=== PATIENT | female | born 1995 | race Caucasian/White ===

== ENCOUNTER 2020-09-19 11:49 | Inpatient (IN) | payer OTHER ==
[2020-09-19] MEDS ORDERED: Water For Irrigation,Sterile 1,000 ML Container IRR PRN (12:38)
[2020-09-19] MEDS ORDERED: Misoprostol 200 MCG Tab PO PRN (12:38)
[2020-09-19] MEDS ORDERED: Sodium Chloride 0.9% 2.5 ML Syringe FLUSH PRN (12:38)
[2020-09-19] MEDS ORDERED: Terbutaline 1 MG/ML SDV SUBCUT PRN (12:38)
[2020-09-19] MEDS ORDERED: Nalbuphine 10 MG/1 ML Vial IVPUSH PRN (12:38)
[2020-09-19] MEDS ORDERED: Tranexamic Acid 1,000 MG in Sodium Chloride 0.9% 100 ML IV PRN (12:38)
[2020-09-19] MEDS ORDERED: Misoprostol 25 MCG (1/4 of 100 MCG) Tab VAG PRN ×2 (12:38)
[2020-09-19] MEDS ORDERED: Lidocaine 1% 50 ML MDV INJECT PRN (12:38)
[2020-09-19] MEDS ORDERED: Sodium Chloride 0.9% 10 ML Syringe FLUSH PRN (12:38)
[2020-09-19] MEDS ORDERED: Methylergonovine 0.2 MG/1 ML Amp IM PRN (12:38)
[2020-09-19] MEDS ORDERED: Butorphanol 1 MG/ML SDV IVPUSH PRN (12:38)
[2020-09-19] MEDS ORDERED: Sodium Chloride 0.9% 10 ML SDV IV PRN (12:38)
[2020-09-19] MEDS ORDERED: Carboprost Tromethamine 250 MCG/1 ML Amp IM PRN (12:38)
[2020-09-19] MEDS ORDERED: Oxytocin/0.9 % Sodium Chloride 30 UNIT/500 ML BAG IV SCH ×2 (12:45)
[2020-09-19] MEDS: Lactated Ringers 1,000 ML IV SCH ×4 (13:50→22:49)
[2020-09-19] MEDS ORDERED: Ropivacaine HCl/PF 100 ML ONE (23:25)
[2020-09-19] MEDS ORDERED: fentaNYL 100 MCG/2 ML SDV ONE (23:26)
--- NOTE | 2020-09-19 23:45 | PCM.PREANE ---
Preanesthetic Assessment - Anesthesia/Transfusion/Family Hx Anesthesia History: Prior Anesthesia Without Reaction Family History of Anesthesia Reaction: No Transfusion History: No Prior Transfusion(s) Intubation History: Unknown - Review of Systems General: No Symptoms Pulmonary: No Symptoms Cardiovascular: No Symptoms Gastrointestinal: Abdominal Pain (labor pain) Neurological: No Symptoms Other: Reports: None - Physical Assessment Height: 5 ft 9 in Weight: 99.337 kg ASA Class: 2 Mental Status: Alert & Oriented x3 Airway Class: Mallampati = 2 Dentition: Reports: Normal Dentition Thyro-Mental Finger Breadths: 3 Mouth Opening Finger Breadths: 3 ROM/Head Extension: Full Lungs: Clear to Auscultation, Normal Respiratory Effort Cardiovascular: Regular Rate, Regular Rhythm - Lab Values: Laboratory Last Values Ur Random Creatinine 154.2 mg/dL 09/19/20 11:00 U Random Total Protein 25.4 mg/dL (<11.9) H 09/19/20 11:00 Protein/Creatinin Ratio 0.2 09/19/20 11:00 SARS-CoV-2 RNA (KENDAL) NEGATIVE (NEGATIVE) 09/19/20 12:25 Blood Type A POSITIVE 09/19/20 13:50 Antibody Screen NEGATIVE 09/19/20 13:50 - Allergies Allergies/Adverse Reactions: Allergies Allergy/AdvReac Type Severity Reaction Status Date / Time No Known Drug Allergies Allergy Other Verified 09/19/20 12:57 - Blood Blood Available: No - Anesthesia Plan Pre-Op Medication Ordered: None - Acknowledgements Anesthesia Type Planned: Epidural Pt an Appropriate Candidate for the Planned Anesthesia: Yes Alternatives and Risks of Anesthesia Discussed w Pt/Guardian: Yes Pt/Guardian Understands and Agrees with Anesthesia Plan: Yes PreAnesthesia Questionnaire - Past Health History Medical/Surgical History: Denies Medical/Surgical History Cardiovascular History: Reports: Other (See Below) (gestational HTN) RECORDS CUSTODIAN History: Reports: Psychiatric History: Reports: Anxiety, Depression - SUBSTANCE USE Tobacco Use Status *Q: Former Tobacco User Tobacco Use Within Last Twelve Months: Cigarettes Second Hand Smoke Exposure: No Recreational Drug Use History: No - CURRENT (IN HOUSE) MEDS Current Meds: Current Medications Butorphanol Tartrate (Stadol) 1 mg IVPUSH Q1H PRN PRN Reason: Pain Last Admin: 09/19/20 19:55 Dose: 1 mg Documented by: Carboprost Tromethamine (Hemabate Ds) 250 mcg IM ASDIRECTED PRN PRN Reason: Post Hemorrhage Oxytocin/Sodium Chloride (Oxytocin 30 Unit/500 Ml-Ns) 30 unit in 500 mls @ 2 mls/hr IV TITRATE MANJU; Protocol Lactated Ringer's (Ringers, Lactated) 1,000 mls @ 150 mls/hr IV ASDIRECTED MANJU Last Admin: 09/19/20 22:49 Dose: 150 mls/hr Documented by: Oxytocin/Sodium Chloride (Oxytocin 30 Unit/500 Ml-Ns) 30 unit in 500 mls @ 999 mls/hr IV TITRATE MANJU Tranexamic Acid 1,000 mg/ (Sodium Chloride) 110 mls @ 660 mls/hr IV ONETIME PRN PRN Reason: Bleeding Lidocaine HCl (Xylocaine 1%) 50 ml INJECT ONETIME PRN PRN Reason: Laceration repair Methylergonovine Maleate (Methergine) 0.2 mg IM ASDIRECTED PRN PRN Reason: Post Hemorrhage Misoprostol (Cytotec) 25 mcg VAG ONETIME PRN PRN Reason: Cervical Ripening Last Admin: 09/19/20 14:23 Dose: 25 mcg Documented by: Misoprostol (Cytotec) 25 mcg VAG Q4H PRN PRN Reason: Cervical Ripening Last Admin: 09/19/20 19:02 Dose: 25 mcg Documented by: Misoprostol (Cytotec) 200 mcg PO ONETIME PRN PRN Reason: Post Hemorrhage Nalbuphine HCl (Nubain) 10 mg IVPUSH Q1H PRN PRN Reason: Pain (severe 7-10) Sodium Chloride (Saline Flush) 10 ml FLUSH ASDIRECTED PRN PRN Reason: Keep Vein Open Sodium Chloride (Saline Flush) 2.5 ml FLUSH ASDIRECTED PRN PRN Reason: Keep Vein Open Sodium Chloride (Normal Saline) 10 ml IV ASDIRECTED PRN PRN Reason: IV Use Sterile Water (Sterile Water For Irrigation) 1,000 ml IRR ASDIRECTED PRN PRN Reason: delivery Terbutaline Sulfate (Brethine) 0.25 mg SUBCUT ASDIRECTED PRN PRN Reason: Tacysystole Discontinued Medications Fentanyl (Sublimaze) Confirm Administered Dose 100 mcg .ROUTE .[facility] ONE Stop: 09/19/20 23:27 Ropivacaine (Naropin 0.2%) Confirm Administered Dose 100 mls @ as directed .ROUTE .[facility] ONE Stop: 09/19/20 23:26
[2020-09-20] MEDS ORDERED: Ondansetron 4 MG/2 ML SDV IVPUSH ONE (00:47)
[2020-09-20] MEDS ORDERED: Water For Irrigation,Sterile 1,000 ML Container IRR SCH (02:00)
[2020-09-20] MEDS ORDERED: oxyCODONE 5 MG Tab PO PRN (02:15)
[2020-09-20] MEDS ORDERED: Bisacodyl 10 MG Supp RECTAL PRN (02:15)
[2020-09-20] MEDS ORDERED: Docusate Sodium 100 MG Cap PO PRN (02:15)
[2020-09-20] MEDS ORDERED: Ibuprofen 400 MG Tab PO PRN (02:15)
[2020-09-20] MEDS ORDERED: Lanolin 100% Cream 7 GM Tube TOP PRN (02:15)
[2020-09-20] MEDS ORDERED: Acetaminophen 500 MG Tab PO PRN (02:15)
--- NOTE | 2020-09-20 02:24 | PCM.DEL ---
L & D Note - General Info Date of Service: 09/20/20 Mother's Due Date: 09/26/20 - Delivery Note Labor: Induced by ARM Cervical Ripening Method: Misoprostil Delivery Outcome: Livebirth Delivery Method: Spontaneous Vaginal Delivery-Single Presentation: Left Occiput Anterior (AZALIA) Nuchal Cord: Present (x1) Anesthesia Type: Epidural Amniotic Fluid Description: Clear Suture type: Vicryl (2-0), Chromic (3-0) Placenta: Intact, Spontaneous Cord: 3 Vessels Estimated Blood Loss: 200 Resuscitation Needed: No [place]: Suctioned, Bulb Syringe, Stimulated, [place] Used Score 1 min: 7 Score 5 min: 8 Delivery Comments (Free Text/Narrative):: Dictation #[id number] Induction Criteria - Lambert Score Lambert Score Dilation: 1-2 cm Lambert Score Effacement: 40-50% Lambert Score 's Station: -3 Lambert Score Presenting Part: Reports: Cephalic - Induction Gestational Age >/= 39 wks: Yes Estimated Pelvis: Reports: Adequate Reassuring Monitoring Strip: Yes Absence of Tachy Systole: Yes - General Info Date of Service: 09/20/20 - Patient Data Weight - Most Recent: 219 lb Lab Results Last 24 Hours: Laboratory Results - last 24 hr 09/19/20 09/19/20 09/19/20 Range/Units 11:00 12:25 13:50 Ur Random Creatinine 154.2 mg/dL U Random Total Protein 25.4 H (<11.9) mg/dL Protein/Creatinin Ratio 0.2 SARS-CoV-2 RNA (KENDAL) NEGATIVE (NEGATIVE) Blood Type A POSITIVE Antibody Screen NEGATIVE Med Orders - Current: Current Medications Bisacodyl (Dulcolax) 10 mg RECTAL ONETIME PRN PRN Reason: Constipation Butorphanol Tartrate (Stadol) 1 mg IVPUSH Q1H PRN PRN Reason: Pain Last Admin: 09/19/20 19:55 Dose: 1 mg Documented by: Carboprost Tromethamine (Hemabate Ds) 250 mcg IM ASDIRECTED PRN PRN Reason: Post Hemorrhage Docusate Sodium (Colace) 100 mg PO BID PRN PRN Reason: Constipation Oxytocin/Sodium Chloride (Oxytocin 30 Unit/500 Ml-Ns) 30 unit in 500 mls @ 2 mls/hr IV TITRATE MANJU; Protocol Lactated Ringer's (Ringers, Lactated) 1,000 mls @ 150 mls/hr IV ASDIRECTED MANJU Last Admin: 09/19/20 22:49 Dose: 150 mls/hr Documented by: Oxytocin/Sodium Chloride (Oxytocin 30 Unit/500 Ml-Ns) 30 unit in 500 mls @ 999 mls/hr IV TITRATE MANJU Last Admin: 09/20/20 01:41 Dose: 999 mls/hr Documented by: Tranexamic Acid 1,000 mg/ (Sodium Chloride) 110 mls @ 660 mls/hr IV ONETIME PRN PRN Reason: Bleeding Ibuprofen (Motrin) 400 mg PO Q4H PRN PRN Reason: Pain Ibuprofen (Motrin) 800 mg PO Q6H PRN PRN Reason: Pain Lidocaine HCl (Xylocaine 1%) 50 ml INJECT ONETIME PRN PRN Reason: Laceration repair Methylergonovine Maleate (Methergine) 0.2 mg IM ASDIRECTED PRN PRN Reason: Post Hemorrhage Misoprostol (Cytotec) 25 mcg VAG ONETIME PRN PRN Reason: Cervical Ripening Last Admin: 09/19/20 14:23 Dose: 25 mcg Documented by: Misoprostol (Cytotec) 25 mcg VAG Q4H PRN PRN Reason: Cervical Ripening Last Admin: 09/19/20 19:02 Dose: 25 mcg Documented by: Misoprostol (Cytotec) 200 mcg PO ONETIME PRN PRN Reason: Post Hemorrhage Nalbuphine HCl (Nubain) 10 mg IVPUSH Q1H PRN PRN Reason: Pain (severe 7-10) Oxycodone HCl (Oxycodone) 5 mg PO Q2H PRN PRN Reason: Pain Sodium Chloride (Saline Flush) 10 ml FLUSH ASDIRECTED PRN PRN Reason: Keep Vein Open Sodium Chloride (Saline Flush) 2.5 ml FLUSH ASDIRECTED PRN PRN Reason: Keep Vein Open Sodium Chloride (Normal Saline) 10 ml IV ASDIRECTED PRN PRN Reason: IV Use Sterile Water (Sterile Water For Irrigation) 1,000 ml IRR ASDIRECTED PRN PRN Reason: delivery Sterile Water (Sterile Water For Irrigation) 1,000 ml IRR ASDIRECTED MANJU Last Admin: 09/20/20 02:00 Dose: 1,000 ml Documented by: Terbutaline Sulfate (Brethine) 0.25 mg SUBCUT ASDIRECTED PRN PRN Reason: Tacysystole Witch Kyleigh (Tucks) 1 pad TOP ASDIRECTED PRN PRN Reason: comfort care Discontinued Medications Fentanyl (Sublimaze) Confirm Administered Dose 100 mcg .ROUTE .[facility]-MED ONE Stop: 09/19/20 23:27 Ropivacaine (Naropin 0.2%) Confirm Administered Dose 100 mls @ as directed .ROUTE .[facility] ONE Stop: 09/19/20 23:26 Ondansetron HCl (Zofran) 4 mg IVPUSH ONETIME ONE Stop: 09/20/20 00:48 Last Admin: 09/20/20 00:55 Dose: 4 mg Documented by: - Problem List Review Problem List Initiated/Reviewed/Updated: Yes - My Orders Last 24 Hours: My Active Orders 09/20/20 02:00 Water For Irrigation,Sterile [Sterile Water for Irrigation] 1,000 ml IRR A SDIRECTED 09/20/20 02:15 Patient Status [ADT] Routine May Shower [RC] ASDIRECTED Up ad Abena [RC] ASDIRECTED Vital Signs [RC] PER UNIT ROUTINE Acetaminophen [Tylenol Extra Strength] 1,000 mg PO Q4H PRN Acetaminophen [Tylenol Extra Strength] 500 mg PO Q4H PRN Benzocaine/Menthol [Dermoplast Pain Relief 20%-0.5% [place]] 78 gm TOP ASDIRECTED PRN Docusate Sodium [Colace] 100 mg PO BID PRN Ibuprofen [Motrin] 400 mg PO Q4H PRN Ibuprofen [Motrin] 800 mg PO Q6H PRN Lanolin [Lansinoh HPA] See Dose Instructions TOP ASDIRECTED PRN bisacodyL [Dulcolax] 10 mg RECTAL ONETIME PRN oxyCODONE 5 mg PO Q2H PRN witch Kyleigh [Tucks] 1 pad TOP ASDIRECTED PRN Assess Lochia [WOMSER] Per Unit Routine Assess Uterine Involution [WOMSER] Per Unit Routine Peripheral IV Discontinue [OM.PC] Routine 09/21/20 12:00 HEMOGLOBIN/HEMATOCRIT,HH [HEME] Timed - Assessment Assessment:: 25 year old G1 now P1 at 39w1d with gestational hypertension s/p - Plan Plan:: Routine cares * Rh positive, rubella immune, GBS negative * Encourage ambulation and fluid intake * Regular diet as tolerated * Monitor blood loss * , nursing assistance PRN Gestational hypertension * BPs normotensive to mild range during labor, continue to monitor per protocol * Preeclampsia labs within normal limits * Asymptomatic Dispo: stable. Anticipate routine course
--- NOTE | 2020-09-20 03:33 | OR ---
SURGEON: ELENA CARPENTER MD DATE OF PROCEDURE: 09/20/2020 PREOPERATIVE DIAGNOSES: 1. 39 weeks and 1 day intrauterine . 2. Gestational hypertension. POSTOPERATIVE DIAGNOSES: 1. 39 weeks and 1 day intrauterine . 2. Gestational hypertension. PROCEDURE: Spontaneous vaginal delivery. PRIMARY SURGEON: Elena Carpenter MD, present for the entire procedure. ANESTHESIA: Epidural. COMPLICATIONS: None. ESTIMATED BLOOD LOSS: 200 mL. INDICATIONS: A 25-year-old 1, para 0 at 39 weeks and 1 day presented to routine visit on 09/19/2020. She was noted to have elevated blood pressure and met criteria for gestational hypertension. She was then sent to Labor and Delivery for further evaluation and pre-eclampsia rule out. Pre-eclampsia labs were within normal limits and she was asymptomatic. However, her blood pressures remained in the mild range and she was admitted for induction of labor. FINDINGS: Normal-appearing female in cephalic presentation, clear amniotic fluid, score 7 and 8, weight 3280 g. PROCEDURE IN DETAIL: The patient was admitted to Labor and Delivery and admission physical exam was 1 to 2 cm, 30% effaced, -3. She received an initial dose of vaginal Cytotec at 1425. Approximately 5 hours later, minimal cervical change was noted and a 2nd dose of Cytotec was inserted vaginally. Contractions began to be more regular and patient received an epidural for discomfort. Approximately at 1900, spontaneous of rupture of membranes with clear fluid was noted. Labor progressed spontaneously and approximately at 0030, I was notified that the patient was complete and +1 station. When I entered the patient's room, I performed a cervical examination and noted that she was complete and +2 station. The patient reported nausea and received Zofran with much relief. She then initiated pushing efforts and a viable female was delivered at 0140. A tight nuchal cord x1 was noted and reduced after the delivery. Baby's nares and oropharynx were suctioned with bulb suction and infant was handed to nursing staff and mother. After approximately 1 minute, the umbilical cord was clamped and cut, and umbilical cord blood gases were obtained. The placenta then delivered spontaneously and intact. Inspection of the perineum was then performed and a periurethral laceration and a 1st degree perineal laceration were noted. The periurethral laceration was repaired with 3-0 chromic in a running fashion and the 1st degree perineal repaired with 2-0 Vicryl in a normal fashion. The uterus remained firm and below the umbilicus throughout the postdelivery course and bleeding minimal. EBL was 200 mL. Mother and recovering in room at this time. JASON LEAL /[id number] MTDJoe
[2020-09-20] MEDS: Ibuprofen 800 MG Tab PO PRN ×3 (04:20→20:23)
[2020-09-20] MEDS: Benzocaine/Menthol 20%-0.5% Spray 78 GM Cannister TOP PRN ×2 (04:22→20:24)
[2020-09-20] MEDS: Witch Hazel Medicated Pads 40/Jar TOP PRN ×2 (04:22→20:24)
--- NOTE | 2020-09-20 10:40 | PCM48HPAN ---
Post Anesthesia Note - EVALUATION WITHIN 48HRS OF ANESTHETIC Vital Signs in Normal Range: Yes Patient Participated in Evaluation: Yes Respiratory Function Stable: Yes Airway Patent: Yes Cardiovascular Function Stable: Yes Hydration Status Stable: Yes Pain Control Satisfactory: Yes Nausea and Vomiting Control Satisfactory: Yes Mental Status Recovered: Yes Vital Signs: Last Vital Signs Temp 36.6 C 09/20/20 08:18 Pulse 75 09/20/20 08:18 Resp 18 09/20/20 08:18 BP 131/80 09/20/20 08:18 Pulse Ox 95 09/20/20 08:18 - COMMENTS/OBSERVATIONS Free Text/Narrative:: The patient has no complaints at this time. There were no apparent anesthetic complications at this time. Discharge from anesthesia care.
[2020-09-20] MEDS: Acetaminophen 500 MG Tab PO PRN (21:56)
--- NOTE | 2020-09-21 07:56 | PCM.PNPP ---
- General Info Date of Service: 09/21/20 Subjective Update: Resting in bed with in arms. Pain well controlled. Ambulating and voiding without difficulty. Tolerating PO diet without nausea/vomiting. Reports difficulty sleeping due to anxiety. and supplementing with formula. Denies preeclampsia s/sx. - General Info Date of Service: 09/21/20 - Patient Data Vital Signs - Most Recent: Last Vital Signs Temp 97.3 F 09/21/20 04:16 Pulse 76 09/21/20 04:16 Resp 16 09/21/20 04:16 BP 149/92 H 09/21/20 04:16 Pulse Ox 97 09/21/20 04:16 Weight - Most Recent: 219 lb Med Orders - Current: Current Medications Acetaminophen (Tylenol Extra Strength) 500 mg PO Q4H PRN PRN Reason: Pain Acetaminophen (Tylenol Extra Strength) 1,000 mg PO Q4H PRN PRN Reason: Pain Last Admin: 09/20/20 21:56 Dose: 1,000 mg Documented by: Benzocaine/Menthol (Dermoplast Pain Relief 20%-0.5% [place]) 78 gm TOP ASDIRECTED PRN PRN Reason: Perineal Comfort Measure Last Admin: 09/20/20 20:24 Dose: 1 can Documented by: Bisacodyl (Dulcolax) 10 mg RECTAL ONETIME PRN PRN Reason: Constipation Butorphanol Tartrate (Stadol) 1 mg IVPUSH Q1H PRN PRN Reason: Pain Last Admin: 09/19/20 19:55 Dose: 1 mg Documented by: Carboprost Tromethamine (Hemabate Ds) 250 mcg IM ASDIRECTED PRN PRN Reason: Post Hemorrhage Docusate Sodium (Colace) 100 mg PO BID PRN PRN Reason: Constipation Emollient Ointment (Lansinoh Hpa) 0 gm TOP ASDIRECTED PRN PRN Reason: Sore Nipples Last Admin: 09/20/20 04:21 Dose: 1 gram Documented by: Oxytocin/Sodium Chloride (Oxytocin 30 Unit/500 Ml-Ns) 30 unit in 500 mls @ 2 mls/hr IV TITRATE MANJU; Protocol Lactated Ringer's (Ringers, Lactated) 1,000 mls @ 150 mls/hr IV ASDIRECTED MANJU Last Admin: 12/09/20 22:49 Dose: 150 mls/hr Documented by: Oxytocin/Sodium Chloride (Oxytocin 30 Unit/500 Ml-Ns) 30 unit in 500 mls @ 999 mls/hr IV TITRATE MANJU Last Admin: 09/20/20 01:41 Dose: 999 mls/hr Documented by: Tranexamic Acid 1,000 mg/ (Sodium Chloride) 110 mls @ 660 mls/hr IV ONETIME PRN PRN Reason: Bleeding Ibuprofen (Motrin) 400 mg PO Q4H PRN PRN Reason: Pain Ibuprofen (Motrin) 800 mg PO Q6H PRN PRN Reason: Pain Last Admin: 09/20/20 20:23 Dose: 800 mg Documented by: Lidocaine HCl (Xylocaine 1%) 50 ml INJECT ONETIME PRN PRN Reason: Laceration repair Methylergonovine Maleate (Methergine) 0.2 mg IM ASDIRECTED PRN PRN Reason: Post Hemorrhage Misoprostol (Cytotec) 25 mcg VAG ONETIME PRN PRN Reason: Cervical Ripening Last Admin: 09/19/20 14:23 Dose: 25 mcg Documented by: Misoprostol (Cytotec) 25 mcg VAG Q4H PRN PRN Reason: Cervical Ripening Last Admin: 09/19/20 19:02 Dose: 25 mcg Documented by: Misoprostol (Cytotec) 200 mcg PO ONETIME PRN PRN Reason: Post Hemorrhage Nalbuphine HCl (Nubain) 10 mg IVPUSH Q1H PRN PRN Reason: Pain (severe 7-10) Oxycodone HCl (Oxycodone) 5 mg PO Q2H PRN PRN Reason: Pain Sodium Chloride (Saline Flush) 10 ml FLUSH ASDIRECTED PRN PRN Reason: Keep Vein Open Sodium Chloride (Saline Flush) 2.5 ml FLUSH ASDIRECTED PRN PRN Reason: Keep Vein Open Sodium Chloride (Normal Saline) 10 ml IV ASDIRECTED PRN PRN Reason: IV Use Sterile Water (Sterile Water For Irrigation) 1,000 ml IRR ASDIRECTED PRN PRN Reason: delivery Sterile Water (Sterile Water For Irrigation) 1,000 ml IRR ASDIRECTED MANJU Last Admin: 09/20/20 02:00 Dose: 1,000 ml Documented by: Terbutaline Sulfate (Brethine) 0.25 mg SUBCUT ASDIRECTED PRN PRN Reason: Tacysystole Donnell Arizmendi (Tucks) 1 pad TOP ASDIRECTED PRN PRN Reason: comfort care Last Admin: 09/20/20 20:24 Dose: 1 tub Documented by: Discontinued Medications Fentanyl (Sublimaze) Confirm Administered Dose 100 mcg .ROUTE .[facility]-MED ONE Stop: 09/19/20 23:27 Last Admin: 09/20/20 04:27 Dose: Not Given Documented by: Ropivacaine (Naropin 0.2%) Confirm Administered Dose 100 mls @ as directed .ROUTE .[facility]-MED ONE Stop: 09/19/20 23:26 Last Admin: 09/20/20 04:27 Dose: Not Given Documented by: Ondansetron HCl (Zofran) 4 mg IVPUSH ONETIME ONE Stop: 09/20/20 00:48 Last Admin: 09/20/20 00:55 Dose: 4 mg Documented by: - Interaction Disposition, : [place] in Room with Family Interaction: Holding Feeding: Attempted ; Nursed Fair/Poor Support Person: - Recovery Exam Fundal Tone: Firm Fundal Level: 1 Fingerbreadths Below Umbilicus Fundal Placement: Midline Lochia Amount: Scant Lochia Color: Rubra/Red Perineum Description: Intact, Minimal Bruising/Swelling, Other (see below) Other Perinuem Description: 1st degree laceration Episiotomy/Laceration: Approximated Bladder Status: Voiding - Exam General: Alert Lungs: Normal Respiratory Effort Cardiovascular: Regular Rate GI/Abdominal Exam: Soft Extremities: Non-Tender, Pedal Edema (+1) Skin: Warm, Dry, Intact Neurological: No New Focal Deficit Psy/Mental Status: Normal Affect - Problem List Review Problem List Initiated/Reviewed/Updated: Yes - My Orders Last 24 Hours: My Active Orders 09/21/20 12:00 HEMOGLOBIN/HEMATOCRIT,HH [HEME] Routine - Assessment Assessment:: 25 year old PPD #1 with gestational hypertension s/p - Plan Plan:: Routine cares * Rh positive, rubella immune, GBS negative * Encourage ambulation and fluid intake * Regular diet as tolerated * Monitor blood loss * and supplementing, nursing assistance PRN Gestational hypertension * BPs normotensive to mild range since delivery, will continue to monitor * Preeclampsia labs within normal limits * Asymptomatic Anxiety * Will restart home medications including Trazodone 100mg HS and Duloxetine 90mg daily * Denies SI/HI Dispo: stable. Continue cares today. Anticipate discharge home tomorrow on PPD #2
[2020-09-21] MEDS ORDERED: traZODone 50 MG Tab PO ONE (11:00)
[2020-09-21] MEDS: DULoxetine 30 MG Cap PO SCH (11:37)
[2020-09-21] MEDS: Acetaminophen 500 MG Tab PO PRN ×2 (13:23→20:10)
--- NOTE | 2020-09-22 05:01 | PCM.PNPP ---
- General Info Date of Service: 09/22/20 Functional Status: Reports: Pain Controlled, Tolerating Diet, Ambulating, Urinating - Review of Systems General: Reports: Fatigue. Denies: Fever, Weakness Pulmonary: Denies: Shortness of Breath Cardiovascular: Denies: Chest Pain, Lightheadedness Gastrointestinal: Denies: Abdominal Pain, Nausea, Vomiting Genitourinary: Denies: Flank Pain Musculoskeletal: Reports: No Symptoms Skin: Reports: No Symptoms Neurological: Reports: No Symptoms Psychiatric: Reports: No Symptoms - General Info Date of Service: 09/22/20 - Patient Data Vital Signs - Most Recent: Last Vital Signs Temp 36.8 C 09/22/20 04:22 Pulse 82 09/22/20 04:22 Resp 18 09/22/20 04:22 BP 140/93 H 09/22/20 04:22 Pulse Ox 97 09/22/20 04:22 Weight - Most Recent: 99.337 kg Lab Results - Last 24 Hours: Laboratory Results - last 24 hr 09/19/20 09/21/20 Range/Units 13:50 12:16 Hgb 10.1 L (12.0-16.0) g/dL Hct 32.8 L (36.0-46.0) % RPR Non-Reac (Non-Reac) Med Orders - Current: Current Medications Acetaminophen (Tylenol Extra Strength) 500 mg PO Q4H PRN PRN Reason: Pain Acetaminophen (Tylenol Extra Strength) 1,000 mg PO Q4H PRN PRN Reason: Pain Last Admin: 09/21/20 20:10 Dose: 1,000 mg Documented by: Benzocaine/Menthol (Dermoplast Pain Relief 20%-0.5% [place]) 78 gm TOP ASDIRECTED PRN PRN Reason: Perineal Comfort Measure Last Admin: 09/20/20 20:24 Dose: 1 can Documented by: Bisacodyl (Dulcolax) 10 mg RECTAL ONETIME PRN PRN Reason: Constipation Butorphanol Tartrate (Stadol) 1 mg IVPUSH Q1H PRN PRN Reason: Pain Last Admin: 09/19/20 19:55 Dose: 1 mg Documented by: Carboprost Tromethamine (Hemabate Ds) 250 mcg IM ASDIRECTED PRN PRN Reason: Post Hemorrhage Docusate Sodium (Colace) 100 mg PO BID PRN PRN Reason: Constipation Duloxetine HCl (Cymbalta) 90 mg PO DAILY [facility] Last Admin: 09/21/20 11:37 Dose: 90 mg Documented by: Emollient Ointment (Lansinoh Hpa) 0 gm TOP ASDIRECTED PRN PRN Reason: Sore Nipples Last Admin: 09/20/20 04:21 Dose: 1 gram Documented by: Oxytocin/Sodium Chloride (Oxytocin 30 Unit/500 Ml-Ns) 30 unit in 500 mls @ 2 mls/hr IV TITRATE [facility]; Protocol Lactated Ringer's (Ringers, Lactated) 1,000 mls @ 150 mls/hr IV ASDIRECTED [facility] Last Admin: 09/19/20 22:49 Dose: 150 mls/hr Documented by: Oxytocin/Sodium Chloride (Oxytocin 30 Unit/500 Ml-Ns) 30 unit in 500 mls @ 999 mls/hr IV TITRATE [facility] Last Admin: 09/20/20 01:41 Dose: 999 mls/hr Documented by: Tranexamic Acid 1,000 mg/ (Sodium Chloride) 110 mls @ 660 mls/hr IV ONETIME PRN PRN Reason: Bleeding Ibuprofen (Motrin) 400 mg PO Q4H PRN PRN Reason: Pain Ibuprofen (Motrin) 800 mg PO Q6H PRN PRN Reason: Pain Last Admin: 09/20/20 20:23 Dose: 800 mg Documented by: Lidocaine HCl (Xylocaine 1%) 50 ml INJECT ONETIME PRN PRN Reason: Laceration repair Methylergonovine Maleate (Methergine) 0.2 mg IM ASDIRECTED PRN PRN Reason: Post Hemorrhage Misoprostol (Cytotec) 25 mcg VAG ONETIME PRN PRN Reason: Cervical Ripening Last Admin: 09/19/20 14:23 Dose: 25 mcg Documented by: Misoprostol (Cytotec) 25 mcg VAG Q4H PRN PRN Reason: Cervical Ripening Last Admin: 09/19/20 19:02 Dose: 25 mcg Documented by: Misoprostol (Cytotec) 200 mcg PO ONETIME PRN PRN Reason: Post Hemorrhage Nalbuphine HCl (Nubain) 10 mg IVPUSH Q1H PRN PRN Reason: Pain (severe 7-10) Oxycodone HCl (Oxycodone) 5 mg PO Q2H PRN PRN Reason: Pain Sodium Chloride (Saline Flush) 10 ml FLUSH ASDIRECTED PRN PRN Reason: Keep Vein Open Sodium Chloride (Saline Flush) 2.5 ml FLUSH ASDIRECTED PRN PRN Reason: Keep Vein Open Sodium Chloride (Normal Saline) 10 ml IV ASDIRECTED PRN PRN Reason: IV Use Sterile Water (Sterile Water For Irrigation) 1,000 ml IRR ASDIRECTED PRN PRN Reason: delivery Sterile Water (Sterile Water For Irrigation) 1,000 ml IRR ASDIRECTED MANJU Last Admin: 09/20/20 02:00 Dose: 1,000 ml Documented by: Terbutaline Sulfate (Brethine) 0.25 mg SUBCUT ASDIRECTED PRN PRN Reason: Tacysystole Witch Kyleigh (Tucks) 1 pad TOP ASDIRECTED PRN PRN Reason: comfort care Last Admin: 09/20/20 20:24 Dose: 1 tub Documented by: Discontinued Medications Fentanyl (Sublimaze) Confirm Administered Dose 100 mcg .ROUTE .STK-MED ONE Stop: 09/19/20 23:27 Last Admin: 09/20/20 04:27 Dose: Not Given Documented by: Ropivacaine (Naropin 0.2%) Confirm Administered Dose 100 mls @ as directed .ROUTE .STK-MED ONE Stop: 09/19/20 23:26 Last Admin: 09/20/20 04:27 Dose: Not Given Documented by: Ondansetron HCl (Zofran) 4 mg IVPUSH ONETIME ONE Stop: 09/20/20 00:48 Last Admin: 09/20/20 00:55 Dose: 4 mg Documented by: Trazodone HCl (Trazodone Hcl) 100 mg PO ONETIME ONE Stop: 09/21/20 20:01 Trazodone HCl (Trazodone) 100 mg PO ONETIME ONE Stop: 09/21/20 11:01 Last Admin: 09/21/20 11:36 Dose: 100 mg Documented by: - Infant Interaction Infant Disposition, : [place] in Room with Family Interaction: Holding Feeding: Attempted ; Nursed Fair/Poor Support Person: - Recovery Exam Fundal Tone: Firm Fundal Level: 1 Fingerbreadths Below Umbilicus Fundal Placement: Midline Lochia Amount: Scant Lochia Color: Rubra/Red Perineum Description: Intact, Minimal Bruising/Swelling, Other (see below) Other Perinuem Description: 1st degree laceration Episiotomy/Laceration: Approximated Bladder Status: Voiding - Exam General: Alert, Oriented Lungs: Normal Respiratory Effort Cardiovascular: Regular Rate, Regular Rhythm GI/Abdominal Exam: Normal Bowel Sounds, Soft Extremities: Pedal Edema (trace). No: Lakisha's Sign Skin: Warm, Dry, Intact Neurological: No New Focal Deficit Psy/Mental Status: Alert, Normal Affect, Normal Mood - Problem List & Annotations (1) Vaginal delivery SNOMED Code(s): 922370250 Code(s): O80 - ENCOUNTER FOR FULL-TERM UNCOMPLICATED DELIVERY Status: Acute Current Visit: Yes - Problem List Review Problem List Initiated/Reviewed/Updated: Yes - My Orders Last 24 Hours: My Active Orders 09/22/20 04:49 Ready for Discharge [RC] PER UNIT ROUTINE - Assessment Assessment:: 25 year old PPD #2 with gestational hypertension s/p - Plan Plan:: Routine cares * Rh positive, rubella immune, GBS negative * Encourage ambulation and fluid intake * Regular diet as tolerated * and supplementing, nursing assistance PRN Gestational hypertension * BPs normotensive to mild range since delivery, will continue to monitor * Preeclampsia labs within normal limits Anxiety Taking home medications including Trazodone 100mg HS and Duloxetine 90mg daily * Denies SI/HI Dispo: stable. Blood pressures remain normotensive to mild. Will have patient return for BP check this week. Discharge to home. Discharge instructions reviewed. Follow up at [facility] 1 and 4 weeks. Patient to call if BP >150/110.
[2020-09-22] MEDS: Acetaminophen 500 MG Tab PO PRN (05:11)
[2020-09-22] MEDS: DULoxetine 30 MG Cap PO SCH (10:16)
[2020-09-22] MEDS: Ibuprofen 800 MG Tab PO PRN (11:36)
== END 2020-09-22 14:00 | disposition home or self-care (01) | DRG 807 ==
LOC: MW.OBCHECK 11:49 → MW.OB 12:39 → OBSVTOIN 09-20 01:30 → MW.OB 09-20 05:51
PROVIDERS: ADMIT Obstetrics & Gynecology; ATTEND Obstetrics & Gynecology
PROC: 10E0XZZ Delivery of Products of Conception, External Approach (ICD-10-PCS; principal; 2020-09-20)
DX: O13.4 Gestational [pregnancy-induced] hypertension without significant proteinuria, complicating childbirth (principal); Z37.0 Single live birth; Z3A.39 39 weeks gestation of pregnancy; O99.344 Other mental disorders complicating childbirth; F41.9 Anxiety disorder, unspecified; F32.9 Major depressive disorder, single episode, unspecified; Z20.828 Contact with and (suspected) exposure to other viral communicable diseases
CPT/HCPCS: 01967; 36415; 51702; 59025; 59409; 82570; 82803; 84156; 85014; 85018; 86592; 86850; 86900; 86901; A9270-GY; J0595; J2405; J2590; J7120; U0002